=== PATIENT | male | born 1980 | race Caucasian/White ===

== ENCOUNTER 2018-08-01 17:42 | Emergency (ER) | payer OTHER ==
[~2018-08-01] VITALS: Ht 180.3 cm; Wt 111.6 kg
[2018-08-01 18:00] VITALS: BP 159/115
[2018-08-01] MEDS ORDERED: LIDOCAINE 1%-EPI 1:100,000 20 ML VIAL ONE (18:17)
[2018-08-01] MEDS ORDERED: LIDOCAINE 1%-EPI 1:100,000 20 ML VIAL TP ONE (18:30)
--- NOTE | 2018-08-01 18:33 | NUR ---
In custody of [facility] Officer [place] [id number]
== END 2018-08-01 19:15 | disposition home or self-care (01) ==
LOC: ER 17:45
DX: S81.812A Laceration without foreign body, left lower leg, initial encounter (principal); W22.8XXA Striking against or struck by other objects, initial encounter; Y93.89 Activity, other specified; Y92.89 Other specified places as the place of occurrence of the external cause; Y99.8 Other external cause status
CPT/HCPCS: 12002; 99283; A6402; J3490

== ENCOUNTER 2018-08-13 14:04 | Emergency (ER) | payer OTHER ==
[~2018-08-13] VITALS: Ht 180.3 cm; Wt 111.1 kg
[2018-08-13 14:08] VITALS: BP 163/108
--- NOTE | 2018-08-13 14:51 | NUR ---
For discharge- Aftercare Instructions given verbalized understanding. Home Ambulatory Stable
== END 2018-08-13 14:51 | disposition home or self-care (01) ==
LOC: ER 14:06
DX: S81.812D Laceration without foreign body, left lower leg, subsequent encounter (principal); I10 Essential (primary) hypertension; X58.XXXD Exposure to other specified factors, subsequent encounter
CPT/HCPCS: Z7502